=== PATIENT | male | born 1990 | race Caucasian/White ===

== ENCOUNTER 2018-05-29 09:15 | Emergency (ER) | payer OTHER ==
[~2018-05-29] VITALS: Ht 185.4 cm; Wt 125.8 kg
[2018-05-29 10:06] LABS: HEMATOCRIT 42.7 % (39.0-50.0); HEMOGLOBIN 14.6 g/dl (14.0-18.0); IMMATURE GRANULOCYTES 0.2 % (0.0-1.0); MEAN CELL VOLUME 92.6 fL CALC (80.0-100.0); MEAN CORPUSCULAR HGB 31.7 pG CALC (26.0-32.0); MEAN CORPUSCULAR HGB CONC 34.2 g/L CALC (32.0-36.0); NEUT# 4.63 thou/uL (1.82-7.42); RED BLOOD COUNT 4.61 mill/uL (4.70-6.10); RED CELL DISTRI WIDTH 12.7 % (11.5-15.5)
[2018-05-29 10:14] LABS: PROTHROMBIN TIME 10.6 SECONDS (9.0-12.5)
[2018-05-29 10:30] LABS: ALKALINE PHOSPHATASE 79 u/l (38-126); ANION GAP 12 (6-22 (CALC)); BILIRUBIN, TOTAL 1.3 mg/dL (0.0-1.4); BUN 6 mg/dL (9-20); BUN/CREATININE RATIO 8 (12-20 (CALC)); CARBON DIOXIDE 25 mmol/l (22-30); CHLORIDE 108 mmol/l (95-108); CREATININE 0.7 mg/dL (0.7-1.3); GFR > 60 ML/MIN (>=60 (CALC)); GFR FOR AFR.AMER. > 60 ML/MIN (>=60 (CALC)); POTASSIUM 3.6 mmol/l (3.5-5.1); SGOT/AST 18 u/l (17-59); SGPT/ALT 39 u/l (21-72); SODIUM 141 mmol/l (137-146); TOTAL PROTEIN 6.9 g/dL (6.3-8.2)
[2018-05-29 10:41] LABS: MYOGLOBIN 20 ng/mL (0 - 121)
[2018-05-29] MEDS ORDERED: MOTRIN800 MG PO (11:38)
[2018-05-29 11:41] VITALS: BP 114/60
== END 2018-05-29 11:46 | disposition home or self-care (01) | DRG 313 ==
LOC: ED 09:15
PROVIDERS: Emergency Medicine
DX: R07.89 Other chest pain (principal); F17.210 Nicotine dependence, cigarettes, uncomplicated; R06.02 Shortness of breath; Z22.39 Carrier of other specified bacterial diseases

== ENCOUNTER 2019-12-16 16:37 | Emergency (ER) | payer SELFPAY ==
[~2019-12-16 16:37] MED LIST: MOTRIN800 MG PO
[2019-12-16 16:48] VITALS: BP 135/77
== END 2019-12-16 18:08 | disposition left against medical advice (07) | DRG 951 ==
LOC: ED 16:37 → LWOBS 17:20
DX: Z53.21 Procedure and treatment not carried out due to patient leaving prior to being seen by health care provider (principal)